=== PATIENT | male | born 1950 | race African-American/Black ===

== ENCOUNTER 2025-03-02 09:52 | Outpatient (CLI) | payer MEDICARE, SELFPAY ==
--- OUTSIDE RECORDS SUMMARY | 2025-03-02 10:01 | XMS_ITS | Clinical Summary ---
Author Organization [facility] Address [address] [place] [id number] Care Team Providers Care Robotics Technologist Name Role Phone James Arce MD Primary Care Provider [phone] Allergies No known active allergies Medications glyBURIDE 5 MG tablet Take 5 mg by mouth daily with breakfast. Active pravastatin 10 MG tablet Take 10 mg by mouth nightly at bedtime. Active lisinopril-hydr ochlorothiazide 10-12.5 MG tablet Take 1 tablet by mouth daily. Active metFORMIN 1000 MG tablet Take 1,000 mg by mouth 2 (two) times daily with meals. Active naproxen 500 MG tablet Take 1 tablet (500 mg total) by mouth 2 (two) times daily with meals. 60 tablet 12/20/2019 Active Encounters Date Type Department Care Team Description 01/17/2025 5:06 PM CDT - 01/17/2025 6:58 PM CDT Emergency [facility] [place] [address] Helen Palumbo PA Ankle Pain Discharge Disposition: Home or Self Care (Routine Discharge) 01/17/2025 Travel from Last 3 Months Family History Medical History Relation Comments Diabetes Father Hypertension Father Diabetes Mother Hypertension Mother Relation Status Comments Father Mother Social History Tobacco Use Types Packs/Day Years Used Date Smoking Tobacco: Never Smokeless Tobacco: Never Alcohol Use Standard Drinks/Week Comments No 0 (1 standard drink = 0.6 oz pur e alcohol) AUDIT-C Answer Date Recorded Frequency of Alcohol Consumption Never 12/07/2018 Average Number of Drinks Not on file 019 Frequency of Binge Drinking Not on file 11/10 Sex and Gender Information Value Date Recorded Sex Assigned at Not on file Legal Sex Male 6:19 PM CDT Gender Identity Not on file Sexual Orientation Not on file Last Filed Vital Signs Vital Sign Reading Time Taken Comments Blood Pressure 133/78 01/17/2025 4:58 PM CDT Pulse 69 01/17/2025 4:58 PM CDT Temperature 36.6 C (97.8 F) 01/17/2025 4:58 PM CDT Respiratory Rate 16 01/17/2025 4:58 PM CDT Oxygen Saturation 96% 01/17/2025 4:58 PM CDT Inhaled Oxygen Concentration - - Weight 98 kg (216 lb 0.8 oz) 01/17/2025 4:58 PM CDT Height 165.1 cm (5' 5) 01/17/2025 4:58 PM CDT Body Mass Index 35.95 01/17/2025 4:58 PM CDT Plan of Treatment Health Maintenance Due Date Last Done Comments Colorectal Cancer Screening Colonoscopy (10 Years) 1950 Hepatitis C 1970 DTaP, Tdap and Td Vaccines (1 - Tdap) 1971 COVID-19 Vaccine ( season) 2024 05/12/2024, 05/14/2021, 09/21/2020, Additional history exists RSV Immunization or 60+ Years (1 - 1-dose 75+ series) 2027 Pneumococcal Vaccine: 50+ Years Completed 11/30/2023, 01/05/2023, 01/19/2018 Zoster Vaccines Completed 10/19/2024, 07/20/2024 Meningococcal B Vaccine Aged Out No l onger eligible based on patient's age to complete this topic Meningococcal Vaccine Aged Out No den hamzah eligible based on patient's age to complete this topic RSV Immunizations Under 20 Months Aged Out No longer eligible based on patient's age to complete this topic Procedures Procedure Name Priority Date/Time Associated Diagnosis Comments XR ANKLE LT 2V STAT 01/17/2025 5:16 PM CDT from Last 3 Months Results * XR ANKLE LT 2V (01/17/2025 5:16 PM CDT) Anatomical Region Laterality Modality Ankle Radiographic Tonia ging 01/17/2025 5:49 PM CDT Impressions 01/17/2025 5:50 PM CDT IMPRESSION: No acute osseous abnormality. Referred By: Interpreted By: Bucky Faith MD, 01/17/2025 5:49 PM Narrative 01/17/2025 5:[address] PM [address] [address] EXAMINATION: XR ANKLE LT 2V HISTORY: Pain DATE: 01/17/2025 5:10 PM COMPARISON: None TECHNIQUE: AP and lateral views of the left ankle. 3 images. FINDINGS: No acute fracture or dislocation. There is midfoot degenerative change. Chronic irregularity of the medial malleolus. Plantar calcaneal spur. Small enthesophyte on the calcaneal Achilles tendon insertion point. Procedure Note Bucky Faith MD - 01/17/[address] [id number] EXAMINATION: XR ANKLE LT 2V HISTORY: Pain DATE: 01/17/2025 5:10 PM COMPARISON: None TECHNIQUE: AP and lateral views of the left ankle. 3 images. FINDINGS: No acute fracture or dislocation. There is midfoot degenerativechange. Chronic irregularity of the medial malleolus. Plantar calcanealspur. Small enthesophyte on the calcaneal Achilles tendon insertionpoint. IMPRESSION: No acute osseous abnormality. Referred By: Interpreted By: Bucky Faith MD, 01/17/2025 5:49 PM [facility] Final Result from Last 3 Months Insurance [facility] Care Teams Robotics Technologist Relationship Specialty Start Date End Date James Arce MD [address] [place] [address] PCP - General Geriatric Me 01/17/25
--- OUTSIDE RECORDS SUMMARY | 2025-03-02 10:01 | XMS_ITS | Clinical Summary ---
Author Organization [facility] Address [address] [place] [address] Care Team Providers Care Live In Companion Name Role Phone James Swenson MD Primary Care Provider [phone] Source Comments [facility],non-owned Affiliates and Associated Physician Practices is amultiple site organization consisting of ambulatory clinics and hospital sitesin [place], [place], [place] and [place]. This disclosure is being madepursuant to the Care Everywhere program and may not contain all information available regarding this patient. Last updated 18.[facility] Allergies No known active allergies Medications * Be aware that medications may not be up to date on this document. Alwaysverify current medications with the patient. metFORMIN (Glucophage) 500 MG tablet Take 1 (one) tablet by mouth 2 times daily Active atorvastatin (Lipitor) 10 MG tablet Take 1 (one) tablet by mouth once daily Active pravastatin (Pravachol) 10 MG tablet Take 1 (one) tablet by mouth once daily Active multivitamins (One A Day) capsule Take 1 (one) capsule by mouth once daily Active aspirin EC (Ecotrin) 81 MG tablet Take 1 (one) tablet by mouth once 4 Active ascorbic acid (Vitamin C) 500 MG tablet Take 1 (one) tablet by mouth once daily Active nystatin (Mycostatin) 500728 UNIT/GM cream Apply to affected area 2 times daily to affected area 4 Active GARLIC PO Take 1,000 mg by mouth once daily Active albuterol HFA (Proventil; Ventolin; Proair) 108 (90 Base) MCG/ACT inhaler Inhale 2 (two) puffs by mouth every 6 hours as needed for Shortness of Breath, Wheezing or Cough Active carvedilol (Coreg) 6.25 MG tablet Take 1 (one) tablet by mouth 2 times daily with morning and evening meal for 60 days 60 tablet 3 4 Active carvedilol (Coreg) 6.25 MG tablet TAKE ONE TABLET BY MOUTH 2 TIMES A DAY WITH MORNING AND EVENING MEAL FOR 60 DAYS 60 tablet 3 05/04/2024 11:57 AM CDT 4 025 Active lisinopril-hyd roCHLOROthiazi de (Prinzide; Zestoretic) 10-12.5 MG tablet TAKE 1 TABLET BY MOUTH EVERY DAY 90 tablet 3 4 Active carvedilol (Coreg) 6.25 MG tablet TAKE 1 TABLET BY MOUTH TWICE A DAY WITH MORNING AND EVENING MEAL FOR 60 DAYS 180 tablet 3 5 Active glipiZIDE CR 24hr (Glucotrol XL) 10 MG tablet Take 1 (one) tablet by mouth once daily 5 Active Semaglutide(0. 25 or 0.5MG/DOS) 2 MG/3ML Solution Pen-injector (Ozempic (0.25 or 0.5 MG/DOSE))Indic ations:Type 2 diabetes mellitus without complication, without long-term current use of insulin (HCC) Inject 0.25 mg subcutaneously every 7 days 2 mL 5 Active empagliflozin (Jardiance) 10 MG tablet Take 1 (one) tablet by mouth once daily 30 tablet 5 5 Active Semaglutide(0. 25 or 0.5MG/DOS) 2 MG/3ML Solution Pen-injector (Ozempic (0.25 or 0.5 MG/DOSE))Indic ations:Type 2 diabetes mellitus without complication, without long-term current use of insulin (HCC) Inject 0.5 mg subcutaneously every 7 days EVELYNE: patient assistance 12 mL 3 11/16/2024 11:30 AM CDT 5 Active carvedilol (Coreg) 6.25 MG tablet TAKE 1 TABLET BY MOUTH TWICE A DAY WITH MORNING AND EVENING MEAL FOR 60 DAYS 180 tablet 3 5 Active Active Problems No known active problems Encounters Date Type Department Care Team Description 02/12/2025 Telephone [facility] - Endocrinology [address] [place] [address] Pina Rivera MD Patient Assistance Program 01/29/2025 8:15 PM CDT - 01/30/2025 11:59 PM CDT Hospital Encounter [facility] [address] [facility] [place] [phone] James Swenson MD Discharge Disposition: Home or Self Care 01/26/2025 10:20 AM CDT Office Visit [facility] - Endocrinology [address], [address] [place] [phone] Roberta Barrera, ORCHESTRA LEADER-ADDICTION COUNSELOR Type 2 diabetes mellitus without complication, without long-term current use of insulin (HCC) (Primary Dx) 01/04/2025 Travel 01/01/2025 Orders Only [facility] [address], [facility] [address] [place] [phone] James Swenson MD Obstructive sleep apnea (adult) (pediatric) ; Dyspnea, unspecified type 12/18/2024 Refill [facility] [address], [address] [place] [address] Serenity Kim MD Med Change Request from Last 3 Months Social History Tobacco Use Types Packs/Day Years Used Date Smoking Tobacco: Unknown Tobacco Cessation:Counseling Given: Not Answered Alcohol Use Standard Drinks/Week Comments Never 0 (1 standard drink = 0.6 oz pur e alcohol) Sex and Gender Information Value Date Recorded Sex Assigned at Not on file Legal Sex Male 3:11 PM CDT Gender Identity Not on file Sexual Orientation Not on file Last Filed Vital Signs Vital Sign Reading Time Taken Comments Blood Pressure 128/72 01/26/2025 10:30 AM CDT Pulse 65 01/26/2025 10:30 AM CDT Temperature 35.6 C (96 F) 04/06/2024 7:50 AM CDT Respiratory Rate 19 04/06/2024 12:3 0 PM CDT Oxygen Saturation 96% 01/26/2025 10: 30 AM CDT Inhaled Oxygen Concentration - - Weight 90.6 kg (199 lb 12.8 oz) 025 10:30 AM CDT Height 165.1 cm (5' 5) 10/25/2024 9:44 AM CDT Body Mass Index 33.25 10/25/2024 9:44 AM CDT Plan of Treatment Upcoming Encounters Date Type Department Care Team (Late st Contact Info) Description 04/25/2025 11:30 AM CDT Office Visit [facility] [address], [facility] [address] [place] [address] [place] [address] [facility] [address] [place] [phone] 05/11/2025 9:20 AM CDT Office Visit [facility] - Endocrinology [address], [address] [place] [phone] [place] [address] [facility] [address] [place] [address] Health Maintenance Due Date Last Done Comments COLOGUARD (AGES 45-75) - COL ON CA SCREENING 1952 CT COLONOGRAPHY - COLON CA SCREENING 1950 FIT - COLON CA SCREENING 1950 FLEX SIG - COLON CA SCREENING 1952 HEPATITIS C SCREENING 03/08/1970 DTAP/TDAP/TD VACCINES (1 - Tdap) 1971 PNEUMOCOCCAL VACCINE 50+ (1 of 2 - PCV) 1971 ZOSTER VACCINE (1 of 2) 2002 Respiratory Syncytial Virus (RSV) Vaccine Pt: or over 60 yrs (1 - Risk 60-74 years 1-dose series) 2012 COVID-19 VACCINE (3 - 2023-2 5 season) 2024 09/21/2020, 08/24/2020 DEPRESSION SCREENING 07/12/2024 MEDICARE AWV CALENDAR YEAR 2024 INFLUENZA VACCINE (#1) 2025 COLON MONITORING 01/28/2027 01/28/2017 COLONOSCOPY - COLON CA SCREENING 01/28/2027 01/28/2017 Colorectal Cancer Screening 01/28/2027 HEPATITIS B VACCINE Aged Out No longe r eligible based on patient's age to complete this topic HIB VACCINE Aged Out No longer eligi ble based on patient's age to complete this topic HPV VACCINE Aged Out No longer eligi ble based on patient's age to complete this topic MENINGOCOCCAL (Group B) VACCINE SHARED DECISION-MAKING Aged Out No longer eligible based on patient's age to complete this topic MENINGOCOCCAL GROUPS A/C/Y/W VACCINE Aged Out No longer eligible b ased on patient's age to complete this topic Procedures Procedure Name Priority Date/Time Associated Diagnosis Comments POLYSOMNOGRAPHY 4 OR MORE PARAMETERS WITH CPAP Routine 01/30/2025 11:59 PM CDT Obstructive sleep apnea (adult) (pediatric) Dyspnea, unspecified type GLUCOSE - POINT OF CARE (AMB) STL Routine 01/26/2025 11:28 AM CDT Type 2 diabetes mellitus without complication, without long-term current use of insulin (HCC) HEMOGLOBIN A1C - POINT OF CARE (AMB) Routine 01/26/2025 11:28 AM CDT Type 2 diabetes mellitus without complication, without long-term current use of insulin (HCC) B-TYPE NATRIURETIC PEPTIDE Routine 01/26/2025 11:15 AM CDT Suspected cardiomyopathy Cardiomyopathy, unspecified type (HCC) HTN (hypertension), benign from Last 3 Months Results * Polysomnogram with CPAP if Indicated (01/30/2025 11:59 PM CDT) Narrative [facility] - 01/30/2025 11:59 PM CDT Leni Tavares MD 02/05/2025 11:50 PM [facility] SPLIT NIGHT POLYSOMNOGRAPHY REPORT Name: Trace Santiago Date of : 1949 Date of Test: 01/29/2025 Date of interpretation: 02/05/2025 Referring Physician: Dr. Ketty Swenson CLINICAL INDICATION: Symptoms suggestive of obstructive sleep apnea with snoring, witnessed apnea, Watson Sleepiness Score of 7/24. Weight 192Ibs with Height of 65inches with BMI of 32.. PROCEDURE: Overnight combination technician attended polysomnography was carried out utilizing continuous digital monitoring at the [facility] with a Split Night Protocol. Montage included measurements of EEG (electroencephalography), EOG (electro-oculography), EMG (electromyography), EKG, nasal and oral airflow (thermistor -PTAF), respiratory effort, (abdominal and rib cage movement RIP belts), oxygen saturation, snoring sounds, body position, video monitoring and leg movements. All data was visually scored and analyzed by standard criteria. All events are scored according to the current AASM criteria. IA. Hypopneas have a 30% reductions in air flow signals with a >=3% oxygen desaturation from pre-event baseline or the event is associated with an arousal. IB Hypopneas have a 30% reductions in air flow signals with a >=4% oxygen desaturation from pre-event baseline. In the initial part of the night patient was diagnosed with sleep disordered breathing and in the second part of the night CPAP was initiated for treatment. FINDINGS - Diagnostic part Sleep architecture: Light out 01:27 pm Total recording time was 242.5 minutes with total sleep time of 92.5 minutes. TST in supine 65.5 minutes. Sleep latency is 27 minutes with a sleep efficiency of 38.1% which is below normal. This may be related to the unfamiliar environment of the sleep center (First night effect), insomnia and Sleep disordered breathing. Total number of arousals were 101 with arousal index of 65.5 per hour. Sleep is fragmented due to combination of respiratory events and spontaneous arousals. Sleep Stages N1 Sleep: 7. % N2 Sleep: 93. % N3 Sleep: 0 % REM Sleep: 0 % Respiratory monitoring: Patient per 3% desaturation IA AASM criteria had total of 134 episodes of apneas and hypopneas with (Apnea -Hypopnea Index ) AHI of 86.9/hr. REM and Supine Index was 0 and 85.2 per hour of sleep with non-supine index of 91.1/ hr. Per 4% desaturation IB Medicare criteria total of 133 episodes of apneas and hypopneas with (Apnea -Hypopnea Index) AHI of 86.3/hr. REM and supine index of 0 and 85.2/ hr. The longest event was 29 seconds. Based on this patient has severe obstructive Sleep Apnea (SORAYA) with mild snoring noted in the study. Oxygen Data: Oxygen desaturation did occur to as low as 77 %. With Mean Oxygen saturations of 88%. It was associated with respiratory events. Oxygen saturation remained less than 89% for 73 minutes of TST. Movement events: No evidence of Periodic Limb Movements. Cardiac monitoring: No significant arrhythmias were detected during this sleep study. Average heart rate while asleep was 61. Unusual behavior during sleep: None FINDINGS - CPAP part Sleep architecture: Total recording time was 194.5 minutes with total sleep time of 42 minutes. TST in supine is 16.5 minutes. Sleep latency is 92 minutes with a sleep efficiency of 21.6% which is below normal .Total number of arousals were 55 with arousal index of 78.6 per hour. Sleep Stages N1 Sleep: 6.% N2 Sleep: 94. % N3 Sleep: 0 % REM Sleep: 0% Respiratory monitoring: CPAP titration was started at 4 cm but could not be titrated further due to prolonged awakening once initiated on CPAP. And at CPAP of 4 cm patient slep 42 minutes with AHI of 74.3/ hr and ZAID of 17/ hr. . Mask used was : Resmed Airfit P10 Large Nasal Pillows . Nocturnal hypoxemia resolved with CPAP. Additional oxygen was not required, O2 saturation less than 88% for 8.0 minutes on final pressure. Oxygen Data: Oxygen desaturation did occur to as low as 82%. Oxygen saturation remained less than 89% for 8.0 minutes of TST. Movement events: No evidence of Periodic Limb Movements. Cardiac monitoring: No significant arrhythmias were detected during this sleep study. Average heart rate while asleep was 56 bpm. IMPRESSION: Study with severe sleep apnea and did meet the split night criteria for initiation of CPAP but has limited total sleep time with prolonged awakenings once initiated on CPAP , Optimum Pressure could not be obtained. DIAGNOSIS Obstructive Sleep Apnea severe AHI 86.3 per hour (G47.33) RECOMMENDATIONS: 1. Patient should be treated for sleep apnea with positive airway pressure therapy and scheduled for a titration study with a sedative to find optimum pressure and to improve sleep efficiency. 2. Some other treatment options for patients with sleep apnea include weight reduction, dental appliances, positional therapy, Provent valve, hypoglossal nerve stimulation and correction of upper airways. This should be individualized based on patient's characteristics, symptoms and co morbidites. But not as effective as CPAP with increasing severity of sleep disordered breathing. 3. Patient should be advised against driving or operating heavy equipment if has symptoms of excessive day time sleepiness. 4. Caution should be taken in the use of sedative and alcohols since they have known to make the sleep disordered breathing worse. I have personally reviewed the entire raw data on the overnight PSG including the patient questionnaire, combination technician notes and associated all the tabulated data. FOLLOW UP: I will call the patient and arrange for CPAP and follow up. Please call [phone] if there is any question regarding this patient's care. Leni Tavares M.D. Customer Services Coordinator [facility] Diplomat [place] Board of Sleep Medicine (ABSM) Diplomat Pulmonary, Critical Care and Sleep Medicine (ABIM) Procedure Note Leni Tavares MD - 01/30/2025 11:59 PM CDT [facility] SPLIT NIGHT POLYSOMNOGRAPHY REPORT Name: Trace Santiago Date of : 1949 Date of Test: 01/29/2025 Date of interpretation: 02/05/2025 Referring Physician: Dr. Ketty Swenson CLINICAL INDICATION: Symptoms suggestive of obstructive sleep apnea withsnoring, witnessed apnea, Watson Sleepiness Score of 7/24. Weight 192Ibswith Height of 65inches with BMI of 32.. PROCEDURE: Overnight combination technician attended polysomnography was carried out utilizingcontinuous digital monitoring at the [facility] with a SplitNight Protocol. Montage included measurements of EEG(electroencephalography), EOG (electro-oculography), EMG(electromyography), EKG, nasal and oral airflow (thermistor - PTAF),respiratory effort, (abdominal and rib cage movement RIP belts), oxygensaturation, snoring sounds, body position, video monitoring and legmovements. All data was visually scored and analyzed by standard criteria.All events are scored according to the current AASM criteria. IA.Hypopneas have a 30% reductions in air flow signals with a >=3% oxygendesaturation from pre-event baseline or the event is associated with anarousal. IB Hypopneas have a 30% reductions in air flow signals with a >=4% oxygendesaturation from pre-event baseline. In the initial part of the night patient was diagnosed with sleepdisordered breathing and in the second part of the night CPAP wasinitiated for treatment. FINDINGS - Diagnostic part Sleep architecture: Light out 01:27 pm Total recording time was 242.5 minutes with total sleep time of 92.5minutes. TST in supine 65.5 minutes. Sleep latency is 27 minutes with asleep efficiency of 38.1% which is below normal. This may be related tothe unfamiliar environment of the sleep center (First night effect),insomnia and Sleep disordered breathing. Total number of arousals were 101 with arousal index of 65.5 per hour.Sleep is fragmented due to combination of respiratory events andspontaneous arousals. Sleep Stages N1 Sleep: 7. % N2 Sleep: 93. % N3 Sleep: 0 % REM Sleep: 0 % Respiratory monitoring: Patient per 3% desaturation IA AASM criteria had total of 134 episodes ofapneas and hypopneas with (Apnea -Hypopnea Index ) AHI of 86.9/hr. REM andSupine Index was 0 and 85.2 per hour of sleep with non-supine index of91.1/ hr. Per 4% desaturation IB Medicare criteria total of 133 episodes of apneasand hypopneas with (Apnea -Hypopnea Index) AHI of 86.3/hr. REM and supineindex of 0 and 85.2/ hr. The longest event was 29 seconds. Based on this patient has severe obstructive Sleep Apnea (SORAYA) with mildsnoring noted in the study. Oxygen Data: Oxygen desaturation did occur to as low as 77 %. With Mean Oxygensaturations of 88%. It was associated with respiratory events. Oxygen saturation remained less than 89% for 73 minutes of TST. Movement events: No evidence of Periodic Limb Movements. Cardiac monitoring: No significant arrhythmias were detected during thissleep study. Average heart rate while asleep was 61. Unusual behavior during sleep: None FINDINGS - CPAP part Sleep architecture: Total recording time was 194.5 minutes with total sleep time of 42minutes. TST in supine is 16.5 minutes. Sleep latency is 92 minutes with asleep efficiency of 21.6% which is below normal .Total number of arousalswere 55 with arousal index of 78.6 per hour. Sleep Stages N1 Sleep: 6.% N2 Sleep: 94. % N3 Sleep: 0 % REM Sleep: 0% Respiratory monitoring: CPAP titration was started at 4 cm but could not be titrated further dueto prolonged awakening once initiated on CPAP. And at CPAP of 4 cm patientslep 42 minutes with AHI of 74.3/ hr and ZAID of 17/ hr. . Mask used was :Resmed Airfit P10 Large Nasal Pillows . Nocturnal hypoxemia resolved with CPAP. Additional oxygen was notrequired, O2 saturation less than 88% for 8.0 minutes on final pressure. Oxygen Data: Oxygen desaturation did occur to as low as 82%. Oxygen saturation remainedless than 89% for 8.0 minutes of TST. Movement events: No evidence of Periodic Limb Movements. Cardiac monitoring: No significant arrhythmias were detected during this sleep study. Averageheart rate while asleep was 56 bpm. IMPRESSION: Study with severe sleep apnea and did meet the split night criteria forinitiation of CPAP but has limited total sleep time with prolongedawakenings once initiated on CPAP , Optimum Pressure could not beobtained. DIAGNOSIS Obstructive Sleep Apnea severe AHI 86.3 per hour (G47.33) RECOMMENDATIONS: 1. Patient should be treated for sleep apnea with positive airway pressuretherapy and scheduled for a titration study with a sedative to findoptimum pressure and to improve sleep efficiency. 2. Some other treatment options for patients with sleep apnea includeweight reduction, dental appliances, positional therapy, Provent valve,hypoglossal nerve stimulation and correction of upper airways. Thisshould be individualized based on patient's characteristics, symptoms andco morbidites. But not as effective as CPAP with increasing severity ofsleep disordered breathing. 3. Patient should be advised against driving or operating heavy equipmentif has symptoms of excessive day time sleepiness. 4. Caution should be taken in the use of sedative and alcohols since theyhave known to make the sleep disordered breathing worse. I have personally reviewed the entire raw data on the overnight PSGincluding the patient questionnaire, combination technician notes and associated allthe tabulated data. FOLLOW UP: I will call the patient and arrange for CPAP and follow up. Please call [phone] if there is any question regarding this patient'scare. Leni Tavares M.D. Customer Services Coordinator [facility] Diplomat [place] Board of Sleep Medicine (ABSM) Diplomat Pulmonary, Critical Care and Sleep Medicine (ABIM) James Swenson MD SLEEP CENTER ORDERABLES Final Re sult DP MEDQUIST * (ABNORMAL) GLUCOSE - POINT OF CARE (AMB) STL (01/26/2025 11:28 AM CDT) Glucose 131(A) 60 - 100 mg/dL Lot # [id number] Expiration Date 04/10/2026 QC Verified Yes Yes Blood BLOOD SPECIMEN / Unknown 01/26/2025 11:28 AM CDT us Roberta Barrera ORCHESTRA LEADER-ADDICTION COUNSELOR LAB - POINT OF CARE ORDER DOMENIC Final Result * HEMOGLOBIN A1C - POINT OF CARE (HgbA1C) (01/26/2025 11:28 AM CDT) Hemoglobin A1c POCT 6.2 % Expiration Date 08/21/2026 Lot # [id number] QC Verified Yes Yes Blood BLOOD SPECIMEN / Unknown 01/26/2025 11:28 AM CDT Roberta Barrera ORCHESTRA LEADER-ADDICTION COUNSELOR LAB - POINT OF CARE ORDER DOMENIC Final Result * B-TYPE NATRIURETIC PEPTIDE (01/26/2025 11:15 AM CDT) BNP 15.9 0.0 - 100.0 pg/mL [facility] INSURANCE BILL Comment:[employer] methodology Blood BLOOD SPECIMEN / Unknown 01/26/2025 11:15 AM CDT 01/26/2025 Narrative [facility] INSURANCE BILL - 01/27/2025 8:07 AM CDT Performed at: - [address] [id number] Dust Collector Attendant: George So PhD, Phone: [phone] us Serenity Kim MD LAB - CHEMISTRY ORDERABLES Fi nal Result [facility] INSURANCE BILL [address] [place] [address] from Last 3 Months Insurance [facility] MANAGED MEDICARE ADV Advance Directives * Full Code (Latest Code Status on File) Date Activated Date Inactivated Comments 04/06/2024 9:53 AM 04/06/2024 2:02 PM Care Teams Live In Companion Relationship Specialty Start Date End Date James Swenson MD [address] [place] [id number] PCP - General Internal Medicine 05/22/24
--- OUTSIDE RECORDS SUMMARY | 2025-03-02 10:01 | XMS_ITS | Encounter Summary ---
Author Organization [facility] Care Team Providers Care Outside Laborer Name Role Phone Aiden Orozco MD Primary Care Provider [phone] James Swenson MD Primary Care Provider [phone] Encounter Details Date Type Department Care Team (Latest Contact Info) Description 01/17/2018 Orders Only [facility] CLINCONV ProviderAniyah MD [address] [place] [id number] Social History Tobacco Use Types Packs/Day Years Used Date Smoking Tobacco: Never Assessed Sex and Gender Information Value Date Recorded Sex Assigned at Not on file Legal Sex Male 7:09 PM CDT Gender Identity Not on file Sexual Orientation Not on file documented as of this encounter Plan of Treatment Not on file documented as of this encounter Procedures Procedure Name Priority Date/Time Associated Diagnosis Comments COLONOSCOPY - SCAN 01/28/2017 12 :00 AM CDT documented in this encounter Results * COLONOSCOPY - SCAN (01/28/2017 12:00 AM CDT) Narrative 01/28/2017 12:00 AM CDT Ordered by an unspecified provider. Historical Provider Final Res ult documented in this encounter Visit Diagnoses Not on filedocumented in this encounter Additional Health Concerns Infection Onset Date Last Indicated Resolved Time COVID: Suspected 10/30/2019 10/30/2019 11/13/2019 3:05 AM CDT COVID19 10/30/2019 10/30/2019 11/13/2019 3:05 AM CDT documented as of this encounter Care Teams Outside Laborer Relationship Specialty Start Date End Date Aiden Orozco MD PCP - General Family Practice 09/30/18 01/18/24 James Swenson MD PCP - General Internal Medicine 01/31/24 documented as of this encounter
--- OUTSIDE RECORDS SUMMARY | 2025-03-02 10:01 | XMS_ITS | Clinical Summary ---
Author Organization [facility] [address] [facility] Address [address] [address] [facility] [place] [address] Care Team Providers Care Log Chipper Operator Name Role Phone James Swenson MD Primary Care Provider [phone] Allergies No known active allergies Medications garlic 1,000 mg capsule Take 1,000 mg by mouth daily before breakfast Active flaxseed oil 1,000 mg capsule Take 1 capsule (1,000 mg total) by mouth daily before breakfast Active ascorbic acid (VITAMIN C) 500 mg tablet,chewable Indications:Vit elizondo C Deficiency Take 1 tablet/chew tab (500 mg total) by mouth daily before breakfast Active multivitamin capsuleIndicati ons:Vitamin Deficiency Prevention Take 1 capsule by mouth daily before breakfast Active albuterol HFA (ProAir HFA) 90 mcg/actuation inhaler Inhale 2 puffs every 4 (four) hours as needed for wheezing or shortness of breath 3 Inhaler 1 0 Active cyanocobalamin (Vitamin B-12) 1,000 mcg tabletIndicatio ns:Prevention of Vitamin B12 Deficiency Take 1 tablet (1,000 mcg total) by mouth daily before breakfast Active aspirin 325 mg tablet Take 1 tablet (325 mg total) by mouth 2 (two) times a day for 14 days 28 tablet 2 Active docusate sodium (COLACE) 100 mg capsuleIndicati ons:constipatio n Take 1 capsule (100 mg total) by mouth 2 (two) times a day as needed for constipation (while taking narcotics) 30 capsule 1 2 Active True Metrix Glucose Meter kit USE DIRECTED 1 kit 2 Active glipiZIDE XL (GLUCOTROL XL) 10 mg 24 hr tablet TAKE 1 TABLET EVERY DAY 90 tablet 1 3 Active blood glucose diagnostic (True Metrix Glucose Test Strip) stripIndication s:Type 2 diabetes mellitus with hyperglycemia, without long-term current use of insulin (HCC) TEST BLOOD SUGAR DIRECTED daily 100 strip 1 3 Active lisinopril-hydr oCHLOROthiazide (ZESTORETIC) 10-12.5 mg per tablet TAKE 1 TABLET EVERY DAY 90 tablet 3 Active escitalopram (LEXAPRO) 10 mg tablet TAKE 1 TABLET EVERY DAY 90 tablet 3 Active lancets (TRUEplus Lancets) 33 gauge misc USE TO TEST BLOOD SUGAR EVERY DAY 100 each 3 Active alcohol swabs (DropSafe Alcohol Prep Pads) pads, medicated USE PRIOR TO BLOOD GLUCOSE TESTING ONE TIME DAILY 100 each 3 Active metFORMIN (GLUCOPHAGE) 1,000 mg tablet TAKE 1 TABLET TWICE DAILY WITH MEALS 180 tablet 1 3 Active prednisoLONE acetate (PRED FORTE) 1 % ophthalmic suspension Administer 1 drop into the right eye every 4 (four) hours 3 Active cholecalciferol , vitamin D3, 1,000 unit tablet,chewable Take 1 tablet/chew tab by mouth daily Active atorvastatin (LIPITOR) 20 mg tablet Take 1 tablet (20 mg total) by mouth daily 90 tablet 3 3 Active Active Problems Problem Noted Date Diagnosed Date Persistent depressive disorder 01/06/2024 Mixed headache 07/08/2023 Controlled type 2 diabetes m ellitus without complication, without long-term current use of insulin 01/04/2023 Assessment & Plan (05/19/2023 7:50 AM SPA RECEPTIONIST): A1c today. Continue glipizide/metformin at same dosage. Well controlled. Assessment & Plan (01/04/2023 9:51 AM CDT): A1c today. Continue metformin/glipizide at same dosage. Well controlled. Class 1 obesity due to exces s calories with serious comorbidity and body mass index (BMI) of 34.0 to 34.9 in adult 01/04/2023 Assessment & Plan (07/07/2023 9:45 AM SPA RECEPTIONIST): BMI Follow-up includes: nutrition counseling and exercise counseling. Assessment & Plan (05/19/2023 7:55 AM SPA RECEPTIONIST): BMI Follow-up includes: nutrition counseling and exercise counseling. Assessment & Plan (01/04/2023 9:56 AM CDT): BMI Follow-up includes: nutrition counseling and exercise counseling. Chronic pain of both knees 12/29/2021 Assessment & Plan (01/04/2023 9:56 AM CDT): Discussed that whenever possible Tylenol should be used instead of NSAIDs for pain. Can take up to 2.6 g of Tylenol daily. Assessment & Plan (06/29/2022 11:16 AM SPA RECEPTIONIST): Stable. Discussed that whenever possible Tylenol should be used instead of NSAIDs for pain. Can take up to 2.6 g of Tylenol daily. Assessment & Plan (12/29/2021 9:29 AM CDT): Limits his mobility. Declines repeat x-ray Rupture of right triceps tendon 09/22/2021 Overview (09/22/2021): Added automatically from request for surgery [id number] Right elbow pain 06/30/2021 Overview (06/30/2021): Present x1 month since fall. Intermittent. Should at least get x-rays. May need referral. Assessment & Plan (06/30/2021 10:15 AM SPA RECEPTIONIST): We will get x-rays. 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 Well controlled. Assessment & Plan (05/19/2023 7:53 AM SPA RECEPTIONIST): Continue Lexapro at same dosage. Well controlled. Assessment & Plan (01/04/2023 9:56 AM CDT): Continue Lexapro at same dosage. Well controlled. Assessment & Plan (06/30/2022 9:49 AM SPA RECEPTIONIST): Some worsening of mood with PHQ-9 score going from 0-up to the level of 2. Recommend increase Lexapro to 20 mg. Increased dosage of Lexapro declined. Assessment & Plan (12/26/2021 9:27 AM CDT): Continue Lexapro at same dosage. Well controlled. Assessment & Plan (06/27/2021 8:33 AM SPA RECEPTIONIST): Improved. Continue Lexapro at same dosage. Well controlled. Assessment & Plan (04/03/2021 9:29 AM CDT): Recommend Lexapro 10 mg daily. Worse in the last few months. PHQ-9 score 2. No substance use. Not suicidal/homicidal. Encounter for Medicare annual wellness exam 03/12 Hypertension associated with diabetes 03/21/2020 Assessment & Plan (07/07/2023 9:40 AM SPA RECEPTIONIST): Continue Zestoretic at same dosage. Well controlled. Assessment & Plan (01/04/2023 9:53 AM CDT): Continue Zestoretic at same dosage. Well controlled. Assessment & Plan (12/26/2021 9:25 AM CDT): Continue Zestoretic 20-12.5 at same dosage. Well controlled. Assessment & Plan (06/27/2021 8:32 AM SPA RECEPTIONIST): Continue lisinopril HCTZ at same dosage. Well controlled. Assessment & Plan (04/02/2021 9:24 AM CDT): Continue lisinopril HCTZ at same dosage. Well controlled. Assessment & Plan (09/30/2020 8:18 AM CDT): Continue lisinopril/HCTZ at same dosage. Well controlled. Assessment & Plan (03/21/2020 10:29 AM CDT): Continue medication at same dosage. Well controlled. Chronic bilateral low back pain without sciatica 05/19/2019 Assessment & Plan (01/04/2023 9:55 AM CDT): Discussed that whenever possible Tylenol should be used instead of NSAIDs for pain. Can take up to 2.6 g of Tylenol daily. Assessment & Plan (12/29/2021 9:28 AM CDT): About the same. It limits lifting. Obstructive sleep apnea syndrome 04/12/2018 Assessment & Plan (12/29/2021 9:28 AM CDT): Continues to refuse to use CPAP due to cost. Understands risk of not treating Assessment & Plan (04/02/2021 9:23 AM CDT): Continues to refuse CPAP Assessment & Plan (09/30/2020 8:18 AM CDT): Continues to refuse CPAP. Understands risk to not treating. Assessment & Plan (03/21/2020 10:29 AM CDT): Strongly recommend CPAP usage. Discussed risk of not treating Assessment & Plan (11/17/2019 9:46 AM CDT): NOT USING CPAP DUE TO COST. DISCUSSED RISK OF FATAL ARRHYTHMIAS WITH NOT TREATING SLEEP APNEA Assessment & Plan (05/18/2019 12:35 PM SPA RECEPTIONIST): Continue CPAP Assessment & Plan (11/17/2018 4:17 PM CDT): Continue CPAP Mixed hyperlipidemia 03/17/2017 Assessment & Plan (07/08/2023 9:59 AM SPA RECEPTIONIST): Worsening of lipidemia as reflected by higher cholesterol. Recommend increase atorvastatin to 20 mg daily. Agrees to increase dosage to 20 mg of atorvastatin Assessment & Plan (05/19/2023 7:51 AM SPA RECEPTIONIST): Improved. Continue atorvastatin at same dosage. Well controlled. Assessment & Plan (01/04/2023 9:52 AM CDT): Continue atorvastatin at same dosage. Well controlled. Discussed that elevated triglycerides at best treated by diet. Encourage ever to keep weight down and decrease fat and starches and diet other than vegetables. Less bread, rice, cereal, and other refined carbohydrates. Assessment & Plan (06/29/2022 11:13 AM SPA RECEPTIONIST): Triglycerides higher but cholesterol is better. Continue Lipitor at same dosage. Well controlled. Discussed that elevated triglycerides at best treated by diet. Encourage ever to keep weight down and decrease fat and starches and diet other than vegetables. Less bread, rice, cereal, and other refined carbohydrates. Assessment & Plan (12/26/2021 9:26 AM CDT): Lipids are some higher. For now will continue atorvastatin at same dosage but needs to consider increase it lipids not improved at next visit Assessment & Plan (06/27/2021 8:33 AM SPA RECEPTIONIST): Continue Lipitor at same dosage. Well controlled. Repeat lipids next visit Assessment & Plan (04/02/2021 9:23 AM CDT): Continue atorvastatin at same dosage. Well controlled. Assessment & Plan (09/30/2020 8:18 AM CDT): Continue Lipitor at same dosage. Well controlled. Assessment & Plan (03/22/2020 9:50 AM CDT): Patient's cholesterol still short of goal. No history of problems with myalgias on other statins. Will change to Lipitor 10 mg he is agreeable. Notify us of myalgias. Assessment & Plan (11/14/2019 2:42 PM CDT): Continue medication at same dosage. Well controlled. Assessment & Plan (05/18/2019 12:36 PM SPA RECEPTIONIST): Continue medication at same dosage. Stable though could be some better Assessment & Plan (11/17/2018 4:17 PM CDT): Continue medication at same dosage Type 2 diabetes mellitus with hyperglycemia 12/2016 Assessment & Plan (07/08/2023 9:59 AM SPA RECEPTIONIST): Worsening of diabetes as reflected by higher A1c. Discussed medication options. Suggest increase glipizide to 10 mg b.i.d. or add pioglitazone 30 mg daily. Continue metformin at 1000 mg b.i.d.. declines any additional medicine for now. He will work on improving his diet. Assessment & Plan (06/30/2022 9:38 AM SPA RECEPTIONIST): Worsening of diabetes . A1c still higher than 2020. . Recommend increase metformin dosage to 1000 mg b.i.d. continue glipizide 10 mg daily. Assessment & Plan (12/29/2021 9:27 AM CDT): A1c is higher. Improved diet. Continue glipizide/metformin at same dosage. Patient will increase metformin to 500 mg 3 times a day. Assessment & Plan (06/27/2021 8:32 AM SPA RECEPTIONIST): A1c today. Continue metformin and glipizide at same dosage. Assessment & Plan (04/03/2021 9:42 AM CDT): Worsening diabetes with worsening A1c. A1c again today. Home blood sugars have been running higher since last visit. Up to average of 180 in the last few weeks. No low blood sugars. Suggest add Jardiance but declined for now. A1c is not so high that we can not wait 3 months and re-evaluate.. Assessment & Plan (09/30/2020 8:17 AM CDT): A1c today . Continue glipizide/metformin at same dosage. Well controlled. Assessment & Plan (03/21/2020 10:28 AM CDT): A1c today. Continue medication at same dosage. Well controlled. Assessment & Plan (11/14/2019 2:41 PM CDT): Continue medication at same dosage. Well controlled. Assessment & Plan (05/19/2019 10:08 AM SPA RECEPTIONIST): Much improved on higher dose of glipizide. Continue medication at same dosage. Well controlled. Assessment & Plan (11/17/2018 4:17 PM CDT): Continue medication at same dosage Resolved Problems Problem Noted Date Diagnosed Date Resolved Date Shortness of breath 10/01/2020 01/05/20 Assessment & Plan (04/02/2021 9:23 AM CDT): Chronic and stable with occasional use of albuterol and refuses further test such as chest x-ray or PFT Assessment & Plan (10/01/2020 9:12 AM CDT): This is primarily with activity. Present for several years. Nonprogressive. No associated chest discomfort. No wheezing or cough. Recommend chest x- ray/EKG/PFT. Agrees to EKG but declines chest x-ray and PFTs or other outside tests. EKG sinus bradycardia rate of 58 with normal intervals and poor R-wave progression and low voltage with rightward axis suggestive of will pulmonary disease Fever 10/27/2019 01/04/2023 Assessment & Plan (11/17/2019 9:47 AM CDT): NO MORE FEVER THOUGH HE DID HAVE POSITIVE TEST FOR COVID-19. NO MORE RESPIRATORY SYMPTOMS. HE HAS RECEIVED LETTER FROM HEALTH DEPARTMENT THAT HE NO LONGER NEEDS TO ISOLATE Assessment & Plan (10/27/2019 10:48 AM CDT): The cause of this is unclear but the only symptoms he has are gastrointestinal so we will try very short course of Cipro for 3 days. He will need follow-up labs on Wednesday if not better Diarrhea of presumed infectious origin 10/27/2019 01/04/2023 Assessment & Plan (10/27/2019 10:49 AM CDT): Will try short course of Cipro. Follow-up within 3 days if still fever and not feeling better Chronic kidney disease, stage II (mild) 09/20/2017 01/04/2023 Assessment & Plan (11/14/2019 2:40 PM CDT): Avoid NSAIDs or PPIs as much as possible. Renal function stable Assessment & Plan (05/18/2019 12:37 PM SPA RECEPTIONIST): Avoid NSAIDs or PPIs as much as possible. Renal function stable Assessment & Plan (11/17/2018 4:22 PM CDT): Avoid NSAIDs or PPIs as much as possible Hypertensive kidney disease with chronic kidney disease 03/17/2017 11/14/2019 Assessment & Plan (11/14/2019 2:40 PM CDT): Continue medication at same dosage. Well controlled. Assessment & Plan (05/18/2019 12:36 PM SPA RECEPTIONIST): Continue medication at same dosage. Well controlled. Assessment & Plan (11/17/2018 4:17 PM CDT): Continue medication at same dosage BMI 35.0-35.9,adult 03/17/2017 01/05/20 23 Assessment & Plan (12/26/2021 9:28 AM CDT): BMI Follow-up includes: nutrition counseling and exercise counseling. Assessment & Plan (06/27/2021 8:34 AM SPA RECEPTIONIST): BMI Follow-up includes: nutrition counseling and exercise counseling. c Assessment & Plan (04/02/2021 9:24 AM CDT): BMI Follow-up includes: nutrition counseling and exercise counseling. Assessment & Plan (09/30/2020 8:19 AM CDT): Patient was advised to lose weight. Discussed 1/2 to 1 lb per week as a good goal. Discussed that reducing weight by 500 calories per day should result in weight loss of about a lb per week. Encouraged efforts to maintain adequate protein of more than 60 g per day. Encouraged reducing refined starches and diet especially bread, rice, pasta, and cereal. Avoid juices and sugared drinks. Discussed that 5-10% weight loss can lead to improvement in health outcomes for weight related conditions. Discussed behavioral measures. Recommended regular weight monitoring as well as some moderate with a food diary.BMI Follow-up includes: nutrition counseling and exercise counseling. Assessment & Plan (03/21/2020 10:30 AM CDT): Patient was advised to lose weight. Discussed 1/2 to 1 lb per week as a good goal. Discussed that reducing weight by 500 calories per day should result in weight loss of about a lb per week. Encouraged efforts to maintain adequate protein of more than 60 g per day. Encouraged reducing refined starches and diet especially bread, rice, pasta, and cereal. Avoid juices and sugared drinks. Discussed that 5-10% weight loss can lead to improvement in health outcomes for weight related conditions. Discussed behavioral measures. Recommended regular weight monitoring as well as some moderate with a food diary.BMI Follow-up includes: nutrition counseling and exercise counseling. Assessment & Plan (05/18/2019 12:37 PM SPA RECEPTIONIST): Patient was advised to lose weight. Discussed 1/2 to 1 lb per week as a good goal. Discussed that reducing weight by 500 calories per day should result in weight loss of about a lb per week. Encouraged efforts to maintain adequate protein of more than 60 g per day. Encouraged reducing refined starches and diet especially bread, rice, pasta, and cereal. Avoid juices and sugared drinks. Discussed that 5-10% weight loss can lead to improvement in health outcomes for weight related conditions. Discussed behavioral measures. Recommended regular weight monitoring as well as some moderate with a food diary.BMI Follow-up includes: nutrition counseling and exercise counseling. Assessment & Plan (11/17/2018 4:24 PM CDT): Patient was advised to lose weight. Discussed 1/2 to 1 lb per week as a good goal. Discussed that reducing weight by 500 calories per day should result in weight loss of about a lb per week. Encouraged efforts to maintain adequate protein of more than 60 g per day. Encouraged reducing refined starches and diet especially bread, rice, pasta, and cereal. Avoid juices and sugared drinks. Discussed that 5-10% weight loss can lead to improvement in health outcomes for weight related conditions. Discussed behavioral measures. Recommended regular weight monitoring as well as some moderate with a food diary.BMI Follow-up includes: nutrition counseling and exercise counseling. Immunizations Immunization Administration Dates Next Due Influenza, Quadrivalent, Hig h Dose, Preservative Free, Intrr 04/03/2021 Influenza, Unspecified 05/20/2023(Deferr ed: Patient decision),04/23/2022(Deferred: Patient Refused),04/23/2022(Deferred: Patient Refused) Moderna SARS-CoV-2 Monovalen t Vaccination (12+ YRS) 09/21/2020,08/24/2020 Pneumococcal Conjugate Pcv20 01/05/2023 Pneumococcal Polysaccharide PPV23 01/19/2018 Surgical History Surgery Date Site/Laterality Comments APPENDECTOMY unknown CATARACT EXTRACTION 06/19/2023 Right Medical History Medical History Date Comments Type II diabetes mellitus, uncontrolled A1C 6.3 in 06/2021, reports home BS ~130-160 Mixed hyperlipidemia on statin Hypertensive renal disease Chronic kidney disease, stage 2 (mild) follows with PCP Obstructive sleep apnea no CPAP COVID-19 virus infection 10/2019 resolve d HTN (hypertension) reports home BP ~130s/70s Asthma reports seasona l, reports albuterol use ~1x/week Family History Medical History Relation Name Comments Diabetes Father Hypertension Father Diabetes Mother Hypertension Mother Anesthesia problems Neg Hx Relation Name Status Comments Father Mother Social History Tobacco Use Types Packs/Day Years Used Date Smoking Tobacco: Never Smokeless Tobacco: Never Alcohol Use Standard Drinks/Week Comments Not Currently 0 (1 standard drink = 0.6 oz pur e alcohol) AUDIT-C Answer Date Recorded Q1: How often do you have a drink containing alcohol? Never 01/05/2023 Q2: How many drinks containi ng alcohol do you have on a typical day when you are drinking? Patient does not drink Q3: How often do you have si x or more drinks on one occasion? Never 01/05/2023 PHQ-2 Answer Date Recorded PHQ-2 Total Score (If total score is 3 or more points, staff should administer the PHQ-9) 0 07/08/2023 Sex and Gender Information Value Date Recorded Sex Assigned at Not on file Legal Sex Male 7:09 PM CDT Gender Identity Not on file Sexual Orientation Not on file Obstetrics History Last Filed Vital Signs Vital Sign Reading Time Taken Comments Blood Pressure 128/80 07/08/2023 9:02 AM SPA RECEPTIONIST Pulse 88 07/08/2023 9:02 AM SPA RECEPTIONIST Temperature 36.2 C (97.2 F) 07/08/2023 9:02 AM SPA RECEPTIONIST Respiratory Rate 20 07/08/2023 9:02 AM SPA RECEPTIONIST Oxygen Saturation 95% 07/08/2023 9:02 AM SPA RECEPTIONIST Inhaled Oxygen Concentration - - Weight 93.9 kg (207 lb) 07/08/2023 9:02 AM SPA RECEPTIONIST Height 165.1 cm (5' 5) 07/08/2023 9:02 AM SPA RECEPTIONIST Body Mass Index 34.45 07/08/2023 9:02 AM SPA RECEPTIONIST Plan of Treatment Health Maintenance Due Date Last Done Comments Hepatitis C Screening 1950 DTaP/Tdap/Td Vaccine (1 - Tdap) 1963 Hepatitis B Screening 1970 Zoster Vaccine (1 of 2) 2002 Abdominal Aortic Aneurysm (A AA) Screen 2017 Albumin Creatinine Ratio, Urine 01/06/2024 3, 09/30/2017 Covid-19 Vaccine (2023-2 5 season) 2024 05/14/2021, 09/21/2020, 08/24/2020 Depression Screening 07/08/2024 07/08/2023, 05/20/2023, 01/05/2023, Additional history exists Fall Risk Assessment 07/08/2024 07/08/2023, 05/20/2023, 01/05/2023, Additional history exists Foot Exam 07/08/2024 07/08/2023, 03/2023, 01/05/2023, Additional history exists Well Visit 65+ 07/08/2024 07/08/2023, 06/12, 04/03/2021, Additional history exists Hemoglobin A1C 08/02/2024 01/31/2024, 06/12, 05/20/2023, Additional history exists Lipid Panel 01/30/2025 01/31/2024, 06/12, 01/05/2023, Additional history exists eGFR 01/30/2025 01/31/2024, 06/12, 01/05/2023, Additional history exists Influenza Vaccine (#1) 2025 04/03/2021 Dilated Eye Exam 05/28/2025 05/28/2023, 12/22/2018 Prostate Cancer Screening-PSA 01/30/2026 01/31/2024 Colon Cancer Screening-Colonoscopy 01/28/2027 01/28/2017 Colon Cancer Screening-CT Colonography Discontinued 01/28/2017 Colon Cancer Screening-DNA Stool Discontinued 01/29/20 Colon Cancer Screening-FIT Discontinued 01/28/2017 Colon Cancer Screening-Sigmoidoscopy Discontinued 01/28/2017 Pneumococcal vaccine 65+ Completed 01/05/2023, 01/09 Medical Devices Implanted Type Area Software Configuration Specialist Device Identifier Shelf Expiration Date Model / Serial / Lot [employer] [id number] Swivelock C 4.75mm 19.1mm Closed Eyelet Vent Kimball Suture - [id number] Implanted:Qty: 1 on 10/07/2021 by Michael Starr MD at [facility] Right: Elbow [employer] 07/11/2025 [id number] / / [id number] Procedures Procedure Name Priority Date/Time Associated Diagnosis Comments EGFR Routine 01/31/2024 11:05 AM CDT HEMOGLOBIN A1C Routine 01/31/2024 11:05 AM CDT LIPID PANEL Routine 01/31/2024 11:05 AM CDT PSA SCREEN Routine 01/31/2024 11:05 AM CDT DIABETIC EYE EXAM Routine 05/28/2023 ALBUMIN CREATININE RATIO, URINE Routine 01/05/2023 12:00 AM CDT Type 2 diabetes mellitus with hyperglycemia, without long-term current use of insulin (HCC) COLONOSCOPY Routine 01/28/2017 from Last 3 Months or Most Recently Relevant to Health Maintenance Results * eGFR (01/31/2024 11:05 AM CDT) eGFR 67 >=60 mL/min/1. 73 m2 Comment: Interpretive Data Reference Interval Normal >/= 90 mL/min/1.73m2 Mildly decreased* 60 - 89 mL/min/1.73m2 Mildly to moderately decreased 45 - 59 mL/min/1.73m2 Moderately to severely decreased 30 - 44 mL/min/1.73m2 Severely decreased 15 - 29 mL/min/1.73m2 Kidney Failure < 15 mL/min/1.73m2 *Relative to young adult level Estimated glomerular filtration rate is determined by the 2020 CKD-EPI equation recommended by the National Kidney Foundation (A Unifying Approach to GFR Estimation: Recommendations of the NKF-ASK Task Force on Reassessing the Inclusion of Race in Diagnosing Kidney Disease, JASN 202). The CKD-EPI equation should not be used for patients with unstable renal function and has not been validated in children and those over 70. Current interpretive data was last reviewed 2021. Blood 01/31/2024 11:0 5 AM CDT 01/31/2024 11:18 AM CDT us James Swenson MD LAB BLOOD ORDERABLES Amparo egan Result [facility] [address] [facility] Department [place] [address] * PSA screen (01/31/2024 11:05 AM CDT) PSA-Total 0.30 <=6.20 ng/mL Comment: Interpretive Data AGE SEX REFERENCE INTERVAL 0 minutes-150 years Female None 0 minutes-49 years Male None 50-59 years Male 0-3.90 60-69 years Male 0-5.40 70-79 years Male 0-6.20 80-150 years Male 0-6.20 The [employer] PSA Total assay procedure was used. Results from different manufacturers or methods may not be comparable. Serial testing should be performed using the same method. Current interpretive data last revised 21. Blood 01/31/2024 11:0 5 AM CDT 01/31/2024 11:18 AM CDT James Swenson MD LAB BLOOD ORDERABLES Amparo l Result Performing Organization Address [facility] de Phone Number [address] [place] [address] * (ABNORMAL) Hemoglobin A1c (01/31/2024 11:05 AM CDT) Pathologist [facility] Hgb A1C 7.4(H) 4.0 - 5.6 % Estimated Average Glucose 166 mg/dL ALEX Comment: The ADA recommends reporting an estimated Average Glucose (eAG) with all Hemoglobin A1c results using the equation derived from a study of 507 normal and diabetic adults. Minority populations were underrepresented and children were not included. (Diabetes Care 31:[id number], 2008). The eAG is not equivalent to a fasting glucose. Blood 01/31/2024 11:0 5 AM CDT 01/31/2024 11:21 AM CDT James Swenson MD LAB BLOOD ORDERABLES Amparo l Result Performing Organization Address [facility] de Phone Number [address] [address] * (ABNORMAL) Lipid panel (01/31/2024 11:05 AM CDT) [facility] Cholesterol 154 30 - 199 mg/dL Comment: Interpretive Data Ages < or = 19 years Acceptable: <170 mg/dL Borderline high: 170-199 mg/dL High: >or= 200 mg/dL Ages > or = 20 years Desirable: <200 mg/dL Borderline high: 200-239 mg/dL High: >or= 240 mg/dL Literature References: 1. Expert Panel on Integrated Guidelines for Cardiovascular Health and Risk Reduction in Children and Adolescents. Pediatrics 2011;128:S213 2. NCEP Expert Panel. Circulation 2004;110:227 Current Interpretive Data was last revised on 2018. Triglycerides 133 <=149 mg/dL [facility] Comment: Interpretive Data Ages < or = 9 years Acceptable: <75 mg/dL Borderline high: 75-99 mg/dL High: >or= 100 mg/dL Ages 10 to 20 years Acceptable: <90 mg/dL Borderline high: 90-129 mg/dL High: >or= 130 mg/dL Ages > or = 20 years Desirable: <150 mg/dL Borderline high: 150-199 mg/dL High: 200-499 mg/dL Very high: >or= 499 mg/dL Literature References: 1. Expert Panel on Integrated Guidelines for Cardiovascular Health and Risk Reduction in Children and Adolescents. Pediatrics 2011;128:S213 2. NCEP Expert Panel. Circulation 2004;110:227 Current Interpretive Data was last revised on 2018. HDL 37(L) >=40 mg/dL [facility] Comment: Interpretive Data Ages < or = 19 years Acceptable: >45 mg/dL Borderline low: 40-45 mg/dL Low: <40 mg/dL Ages > or = 20 years Desirable: >or= 60 mg/dL Low: <40 mg/dL Literature References: 1. Expert Panel on Integrated Guidelines for Cardiovascular Health and Risk Reduction in Children and Adolescents. Pediatrics 2011;128:S213 2. NCEP Expert Panel. Circulation 2004;110:227 Current Interpretive Data was last revised on 2018. LDL, calculated 90 <=129 mg/dL [facility] Comment: Interpretive Data Ages < or = 19 years Acceptable: <110 mg/dL Borderline high: 110-129 mg/dL High: >or= 130 mg/dL Ages > or = 20 years Optimal: <100 mg/dL Near optimal: 100-129 mg/dL Borderline high: 130-159 mg/dL High: >160 mg/dL Literature References: 1. Expert Panel on Integrated Guidelines for Cardiovascular Health and Risk Reduction in Children and Adolescents. Pediatrics 2011;128:S213 2. NCEP Expert Panel. Circulation 2004;110:227 Current Interpretive Data was last revised on 2018. Non-HDL Cholesterol 117 mg/dL [facility]ARIA Comment: Interpretive Data Ages < or = 19 years Acceptable: <120 mg/dL Borderline high: 120-144 mg/dL High: >145 mg/dL Ages > or = 20 years When triglycerides are >200 mg/dL, Non-HDL cholesterol is a secondary target of therapy with treatment goals that are 30 mg/dL greater than the LDL cholesterol target. Literature References: 1. Expert Panel on Integrated Guidelines for Cardiovascular Health and Risk Reduction in Children and Adolescents. Pediatrics 2011;128:S213 2. NCEP Expert Panel. Circulation 2004;110:227 Current Interpretive Data was last revised on 2018. Chol/HDL ratio 4 [facility] FARIA Blood 01/31/2024 11:0 5 AM CDT 01/31/2024 11:18 AM CDT James Swenson MD LAB BLOOD ORDERABLES Amparo l Result [facility] [address] [facility] Department [place] [address] * Diabetic Eye Exam (05/28/2023) Historical Provider HEALTH MAINTENANCE Final Result * (ABNORMAL) Albumin Creatinine Ratio, Urine (01/05/2023 12:00 AM CDT) Creatinine, ur 202 20 - 320 mg/dL [facility] Microalbumin, ur 41.2 See Note: mg/dL [facility] Comment: Reference Range: Reference Range Not established Verified by repeat analysis. Microalbumin/creat ratio 204(H) <30 mcg/mg creat [facility] Comment: The ADA defines abnormalities in albumin excretion as follows: Albuminuria Category Result (mcg/mg creatinine) Normal to Mildly increased <30 Moderately increased 30-299 Severely increased > OR = 300 The ADA recommends that at least two of three specimens collected within a 3-6 month period be abnormal before considering a patient to be within a diagnostic category. Urine 01/05/2023 01/05/2023 8:4 9 AM CDT Narrative [facility] - 01/06/2023 6:11 PM CDT FASTING:YES FASTING: YES Aiden Orozco MD LAB URINE ORDERABLES Final Result [facility] [address] [place] [id number] * Colonoscopy (01/28/2017) Anatomical Region Laterality Modality Other Historical Provider ENDOSCOPY PROCEDURES Amparo l Result from Last 3 Months or Most Recently Relevant to Health Maintenance Insurance [employer] MEDICARE HMO [employer] MEDICARE PPO [employer] MEDICARE HMO Care Teams Log Chipper Operator Relationship Specialty Start Date End Date James Swenson MD PCP - General Internal Medicine 01/31/24
--- OUTSIDE RECORDS SUMMARY | 2025-03-02 10:01 | XMS_ITS | Encounter Summary ---
Author Organization [facility] Address [address] [place] [address] Care Team Providers Care Flat Bed Knitter Name Role Phone James Swenson MD Primary Care Provider [phone] Encounter Details Date Type Department Care Team (Late st Contact Info) Description 10/25/2024 Telephone [facility] - Endocrinology [id number] [place] [address], [address] [address] Roberta Barrera, SUBWAY REPAIR SUPERVISOR-THEATER PROJECTIONIST [address] [address] Social History Tobacco Use Types Packs/Day Years Used Date Smoking Tobacco: Unknown Alcohol Use Standard Drinks/Week Comments Never 0 (1 standard drink = 0.6 oz pur e alcohol) Sex and Gender Information Value Date Recorded Sex Assigned at Not on file Legal Sex Male 3:11 PM CDT Gender Identity Not on file Sexual Orientation Not on file documented as of this encounter Miscellaneous Notes * Telephone Encounter - Andrew Gibbons MA - 10/27/2024 2:40 PM CDT Patient informed. * Telephone Encounter - Marva Gaston - 10/25/2024 9:26 AM CDT Pt came in and said the rx Semaglutide(0.25 or 0.5MG/DOS) 2 MG/3ML Solution Pen- injector (Ozempic (0.25 or 0.5 MG/DOSE)) (Order [id number]) is too expensive. He would like something different. documented in this encounter Plan of Treatment Upcoming Encounters Date Type Department Care Team (Late st Contact Info) Description 04/25/2025 11:30 AM CDT Office Visit [facility] [address] [facility] [address] [place] [address] [place] [address] [facility] [address] [place] [id number] 05/11/2025 9:20 AM CDT Office Visit [facility] - Endocrinology [address] [facility], [address] [place] [phone] [place] [address] [facility] [address] [place] [address] documented as of this encounter Visit Diagnoses Not on filedocumented in this encounter Care Teams Flat Bed Knitter Relationship Specialty Start Date End Date James Swenson MD [address] [place] [id number] PCP - General Internal Medicine 05/22/24 documented as of this encounter
--- OUTSIDE RECORDS SUMMARY | 2025-03-02 10:01 | XMS_ITS | Encounter Summary ---
Author Organization [facility] Care Team Providers Care Seamark Advanced Operator Maintainer Name Role Phone Aiden Orozco MD Primary Care Provider [phone] James Swenson MD Primary Care Provider [phone] Encounter Details Date Type Department Care Team (Latest Contact Info) Description 12/05/2014 Orders Only [facility] ProviderAniyah MD [address] [place] [id number] Social History Tobacco Use Types Packs/Day [...] Procedure Name Priority Date/Time Associated Diagnosis Comments CARDIOLOGY REPORT 10/12/2017 12: 00 AM CDT documented in this encounter Results * CARDIOLOGY REPORT (10/12/2017 12:00 AM CDT) Anatomical Region Laterality Modality Other Narrative 10/12/2017 12:00 AM CDT Ordered by an unspecified provider. Historical Provider [facility] CHUCK SMILEY Final Result documented in this encounter Visit Diagnoses Not on filedocumented in this encounter Additional Health Concerns Infection Onset Date Last Indicated Resolved Time COVID: Suspected 10/30/2019 10/30/2019 11/13/2019 3:05 AM CDT COVID19 10/30/2019 10/30/2019 11/13/2019 3:05 AM CDT documented as of this encounter Care Teams Seamark Advanced Operator Maintainer Relationship Specialty Start Date End Date Aiden Orozco MD PCP - General Family Practice 09/30/18 01/18/24 James Swenson MD PCP - General Internal Medicine 01/31/24 documented as of this encounter
--- OUTSIDE RECORDS SUMMARY | 2025-03-02 10:01 | XMS_ITS | Encounter Summary ---
Author Organization [facility] Care Team Providers Care Professional Development Instructor Name Role Phone Aiden Orozco MD Primary Care Provider [phone] James Swenson MD Primary Care Provider [phone] Encounter Details Date Type Department Care Team (Latest Contact Info) Description 01/18/2017 Orders Only [facility]INCON[facility] ProviderAniyah MD [address] [place] [address] Social History Tobacco Use Types Packs/Day [...] Procedure Name Priority Date/Time Associated Diagnosis Comments SCAN - LABS 01/18/2017 12:00 AM CDT documented in this encounter Results * SCAN - LABS (01/18/2017 12:00 AM CDT) Narrative 01/18/2017 12:00 AM CDT Ordered by an unspecified provider. us Historical Provider Final Res ult documented in this encounter Visit Diagnoses Not on filedocumented in this encounter Additional Health Concerns Infection Onset Date Last Indicated Resolved Time COVID: Suspected 10/30/2019 10/30/2019 11/13/2019 3:05 AM CDT COVID19 10/30/2019 10/30/2019 11/13/2019 3:05 AM CDT documented as of this encounter Care Teams Professional Development Instructor Relationship Specialty Start Date End Date Aiden Orozco MD PCP - General Family Practice 09/30/18 01/18/24 James Swenson MD PCP - General Internal Medicine 01/31/24 documented as of this encounter
--- NOTE | 2025-03-02 14:07 | WPDPFTINT ---
PFT Procedure Performed PFT Procedure Performed Spirometry with Pre/Post Bronchodilator Plethysmography (Lung Vol) Diffusing Cap (DLCO) Flow Vol Loop PFT Interpretation This is a pulmonary function test with pre and post-bronchodilator spirometry, plethysmography and diffusing capacity. The test was performed and results interpreted in accordance with the 2019 and 2005 ATS/ERS Task Force guidelines respectively using the Global Lung Function Initiative-2012 reference equations. Patient demonstrated good effort and cooperation. Reproducibility criteria were met. The quality of the pre bronchodilator spirometry maneuver was Grade A and post bronchodilator spirometry maneuver was Grade A. Findings: Spirometry: The contour the inspiratory and expiratory flow tracing are normal. The pre bronchodilator FVC is 3.27 L, 111% predicted. The pre bronchodilator FEV1 is 2.41 L, 106% predicted. The pre bronchodilator FEV1: FVC ratio 74%. The post bronchodilator FVC is 3.31 L, representing a 2% increase. The post bronchodilator FEV1 is 2.50 L, representing a 4% increase. The post bronchodilator FEV1: FVC ratio 76%. Plethysmography: The total lung capacity is 4.00 L, 76% predicted. The functional residual capacity is 1.48 L, 51% predicted. The residual volume is 0.74 L, 36% predicted. Diffusing capacity: The diffusing capacity unadjusted for hemoglobin and carboxyhemoglobin is 12.9, 55% predicted. The diffusing capacity adjusted for alveolar volume is 3.23, 78% predicted. Impression: The spirometry is normal without evidence of an obstructive abnormality. There is no significant improvement after inhaling a single dose of albuterol. The total lung capacity is normal with a decreased functional residual capacity and residual volume. This is an abnormal but nonspecific lung volume pattern. The diffusing capacity unadjusted for hemoglobin and carboxyhemoglobin is moderately decreased and normalizes when adjusted for alveolar volume. There are no prior studies for comparison
== END 2025-03-02 09:53 | disposition home or self-care (01) ==
PROVIDERS: Visit Provider Internal Medicine Pulmonary Disease
DX: J45.30 Mild persistent asthma, uncomplicated (principal)
CPT/HCPCS: 94060; 94726; 94729